=== PATIENT | female | born 1950 | race Caucasian/White ===

== ENCOUNTER 2020-08-26 07:16 | Day surgery (SDC) | payer MEDICARE, SELFPAY ==
[2020-08-26] VITALS (8 sets, daily range): BP systolic 84–141; BP diastolic 53–87; PULSE 93–100; RESP 16–18; TEMP 36.2–36.7; O2SAT 89–97; BMI 37.5
[2020-08-26] MEDS: Lactated Ringers 1,000 ML 100 ML IV (07:56)
[2020-08-26] MEDS: Vancomycin IV 1,000 MG/200 ML BAG 200 MG IV (08:34)
--- NOTE | 2020-08-26 08:50 | RAD_ITS ---
STUDY: X-RAY - LUMBAR SPINE REASON FOR EXAM: Female, 70 years old. PAIN PUMP INSERTION. NEEDLE PLACEMENT FOR LEVEL L3-L4 TECHNIQUE: 2 coned-down intraoperative view(s) of the lumbar spine were obtained. COMPARISON: None FINDINGS: Intraoperative imaging provided for pain pump insertion. RAD/Lumbar Spine 2 or 3 Views IMPRESSION: Intraoperative imaging provided for pain pump insertion. Electronically Signed: Clint Prado, at 13:08 EDT , Service support ,
[2020-08-26] MEDS: Bupiv/Epi 0.25% 30 ML Vial (09:04)
[2020-08-26] MEDS: 0.9% Normal Saline (Pres. free 10 ML Vial (09:04)
[2020-08-26 09:41] LABS: Bedside Glucose 137 mg/dL (70-110)
[2020-08-26] MEDS: Morphine 4 MG/ML Syringe IM (11:56)
== END 2020-08-26 13:33 | disposition home or self-care (01) ==
LOC: SDC 07:17 → AC 07:17
PROVIDERS: Anesthesiology; Referring Provider Anesthesiology Pain Medicine; Visit Provider Anesthesiology Pain Medicine
DX: G89.4 Chronic pain syndrome (principal); E11.9 Type 2 diabetes mellitus without complications; J44.9 Chronic obstructive pulmonary disease, unspecified; G47.30 Sleep apnea, unspecified; G25.81 Restless legs syndrome; E78.00 Pure hypercholesterolemia, unspecified; F32.9 Major depressive disorder, single episode, unspecified; M06.9 Rheumatoid arthritis, unspecified; Z78.0 Asymptomatic menopausal state; Z85.51 Personal history of malignant neoplasm of bladder; Z87.19 Personal history of other diseases of the digestive system; Z86.73 Personal history of transient ischemic attack (TIA), and cerebral infarction without residual deficits; Z79.82 Long term (current) use of aspirin; Z79.84 Long term (current) use of oral hypoglycemic drugs; Z79.899 Other long term (current) drug therapy; F17.200 Nicotine dependence, unspecified, uncomplicated
CPT/HCPCS: 01992; 62362; 63650; 72100; 76000; 82962; 87635; C9803; J7120; J2274; J3490; U0003